=== PATIENT | male | born 1935 | race Caucasian/White ===

== ENCOUNTER 2018-03-29 03:06 | Inpatient (IN) ==
[2018-03-29] MEDS ORDERED: ALBUTEROL/IPRATROPIUM 3 ML NEB RESP TX STA (03:48)
[2018-03-29 04:24] LABS: Basophils % 0.1 % (0.0-0.8); Eosinophils % 0.1 % (0.00-10.9); Hematocrit 32.1 VOL% (42.0-52.0); Hemoglobin 10.6 GM/DL (14.0-18.0); Immature Granulocytes % 0.5 %; Immature Granulocytes Absolute 0.07 #; Lymphocytes % 6.6 % (21.2-54.2); Mean Corpuscular Hemoglobin 32 PG (27-34); Mean Corpuscular Volume 95.5 FL (87-102); Monocytes # 2.3 10*3/uL (0.11-0.8); Monocytes % 16.1 % (1.7-12.7); Neutrophils # 11.1 10*3/uL (1.4-7.4); Neutrophils % 76.6 % (38.7-73.9); Platelet Count 205 T/CUMM (130-400); Red Blood Count 3.36 MC/CUMM (3.8-5.5); Red Cell Distribution Width 12.3 % (9.3-17.3); White Blood Count 14.5 T/CUMM (4-12)
[2018-03-29 04:48] LABS: Alanine Aminotransferase 77 U/L (16-61); Albumin 2.8 G/DL (3.4-5.0); Alkaline Phosphatase 167 U/L (45-117); Aspartate Amino Transferase 88 U/L (0-37); Blood Urea Nitrogen 17 MG/DL (7-18); Calcium 8.2 MG/DL (8.5-10.1); Glucose 130 MG/DL (74-106); Osmolality,Calculated 276.8 MOS/KG (273-304); Potassium 4.1 MMOL/L (3.5-5.1); Sodium 137 MMOL/L (136-145); Total Protein 6.2 G/DL (6.4-8.3)
[2018-03-29 04:50] LABS: Band Neutrophils 7 % (0-10); Lymphocytes 7 % (20-55); Segmented Neutrophils 77 % (50-85); Total Cells Counted 100
[2018-03-29 09:22] LABS: Apearance,Urine Slightly Hazy (Clear); Bacteria,Urine Occasional /HPF (Few); Bilirubin,Urine Negative (Negative); Blood, Urine Small mg/dL (Negative); Glucose,Urine (UA) Negative (Negative); Ketones,Urine Negative (Negative); Mucus,Urine Occasional /LPF (Occasional); Nitrite,Urine Negative (Negative); Protein,Urine 30 MG/DL; RBC,Urine 6 /HPF (0-4); Squamous Epithelial Cell,Urine Occasional /HPF (0-10); Urine Color Amber (Yellow); Urine Specific Gravity 1.057 (1.001-1.035); WBC,Urine 97 /HPF (0-6)
[2018-03-29] MEDS: MEROPENEM 1,000 MG in SYRINGE 1 EACH IV SCH ×2 (14:26→21:45)
[2018-03-29] MEDS: PIPERACILLIN/TAZOBACTAM 3,375 MG in SODIUM CHLORIDE 0.9% 100 ML IV SCH (17:18)
[2018-03-29] MEDS: PANTOPRAZOLE 40 MG TABLET PO SCH (21:45)
[2018-03-29] MEDS: ESCITALOPRAM 10 MG TABLET PO SCH (21:45)
[2018-03-30] MEDS: ACETAMINOPHEN 325 MG TABLET PO PRN (00:54)
[2018-03-30] MEDS: PIPERACILLIN/TAZOBACTAM 3,375 MG in SODIUM CHLORIDE 0.9% 100 ML IV SCH ×2 (00:54→13:26)
[2018-03-30] MEDS: MEROPENEM 1,000 MG in SYRINGE 1 EACH IV SCH ×3 (06:19→21:46)
[2018-03-30 07:03] LABS: Basophils % 0.2 % (0.0-0.8); Eosinophils # 0.2 10*3/uL (0.0-0.87); Eosinophils % 2.1 % (0.00-10.9); Hematocrit 28.2 VOL% (42.0-52.0); Hemoglobin 9.4 GM/DL (14.0-18.0); Immature Granulocytes % 0.4 %; Immature Granulocytes Absolute 0.04 #; Lymphocytes % 9.7 % (21.2-54.2); Mean Corpuscular HGB Conc 33.3 GM/DL (32-36); Mean Corpuscular Hemoglobin 31 PG (27-34); Mean Corpuscular Volume 94.3 FL (87-102); Mean Platelet Volume 10.7 FL (9.6-12.0); Monocytes # 1.5 10*3/uL (0.11-0.8); Monocytes % 14.6 % (1.7-12.7); Neutrophils # 7.5 10*3/uL (1.4-7.4); Platelet Count 220 T/CUMM (130-400); Red Blood Count 2.99 MC/CUMM (3.8-5.5); Red Cell Distribution Width 12.3 % (9.3-17.3); White Blood Count 10.2 T/CUMM (4-12)
[2018-03-30 07:27] LABS: Albumin 2.3 G/DL (3.4-5.0); Bilirubin,Total 1.3 MG/DL (0.2-1.0); Calcium 8.1 MG/DL (8.5-10.1); Osmolality,Calculated 282.3 MOS/KG (273-304); Total Protein 5.4 G/DL (6.4-8.3)
[2018-03-30] MEDS: PANTOPRAZOLE 40 MG TABLET PO SCH ×2 (09:17→21:48)
[2018-03-30] MEDS: MONTELUKAST 10 MG TABLET PO SCH (09:17)
[2018-03-30] MEDS: FLUTICASONE 50 MCG NASAL SPRAY 16 GM BOTTLE BOTH NARES SCH (09:17)
[2018-03-30] MEDS: ALBUTEROL 0.63 MG/3 ML NEB RESP TX SCH ×3 (10:20→19:15)
[2018-03-30 11:14] LABS: Hepatitis A Ab IgM Result Negative (Negative); Hepatitis B Core IgM Quant 0.18 Index; Hepatitis B Core IgM Result Negative (Negative); Hepatitis B Surface Ag Quant < 0.10 Index; Hepatitis B Surface Ag Result Negative (Negative); Hepatitis C Virus Ab Quant 0.17 Index; Hepatitis C Virus Ab Result Negative (Negative)
[2018-03-30] MEDS ORDERED: MAGNESIUM CITRATE 300 ML BOTTLE PO ONE (14:45)
[2018-03-30] MEDS: ESCITALOPRAM 10 MG TABLET PO SCH (20:16)
[2018-03-31] MEDS: ALBUTEROL 0.63 MG/3 ML NEB RESP TX SCH ×4 (00:18→19:33)
[2018-03-31 04:59] LABS: Basophils % 0.2 % (0.0-0.8); Eosinophils # 0.2 10*3/uL (0.0-0.87); Eosinophils % 1.9 % (0.00-10.9); Hemoglobin 9.4 GM/DL (14.0-18.0); Immature Granulocytes % 0.4 %; Immature Granulocytes Absolute 0.04 #; Lymphocytes # 0.9 10*3/uL (1.4-4.0); Lymphocytes % 9.7 % (21.2-54.2); Mean Corpuscular HGB Conc 33.6 GM/DL (32-36); Mean Corpuscular Hemoglobin 31 PG (27-34); Mean Corpuscular Volume 93.6 FL (87-102); Mean Platelet Volume 10.5 FL (9.6-12.0); Monocytes # 1.2 10*3/uL (0.11-0.8); Monocytes % 12.8 % (1.7-12.7); Neutrophils # 7.2 10*3/uL (1.4-7.4); Platelet Count 242 T/CUMM (130-400); Red Blood Count 2.99 MC/CUMM (3.8-5.5); Red Cell Distribution Width 12.2 % (9.3-17.3); White Blood Count 9.6 T/CUMM (4-12)
[2018-03-31 05:29] LABS: Calcium 7.8 MG/DL (8.5-10.1); Osmolality,Calculated 278.4 MOS/KG (273-304); Potassium 4.3 MMOL/L (3.5-5.1)
[2018-03-31] MEDS: MEROPENEM 1,000 MG in SYRINGE 1 EACH IV SCH ×2 (06:17→14:45)
[2018-03-31] MEDS: FLUTICASONE 50 MCG NASAL SPRAY 16 GM BOTTLE BOTH NARES SCH (09:39)
[2018-03-31] MEDS: PANTOPRAZOLE 40 MG TABLET PO SCH ×2 (09:40→21:08)
[2018-03-31] MEDS: MONTELUKAST 10 MG TABLET PO SCH (09:40)
[2018-03-31] MEDS: POLYETHYLENE GLYCOL POWDER 17 GM PACK PO SCH (11:08)
[2018-03-31] MEDS: ESCITALOPRAM 10 MG TABLET PO SCH (21:08)
[2018-04-01] MEDS: ALBUTEROL 0.63 MG/3 ML NEB RESP TX SCH ×4 (00:31→20:27)
[2018-04-01] MEDS: FLUTICASONE 50 MCG NASAL SPRAY 16 GM BOTTLE BOTH NARES SCH (09:39)
[2018-04-01] MEDS: PANTOPRAZOLE 40 MG TABLET PO SCH ×2 (09:39→20:26)
[2018-04-01] MEDS: POLYETHYLENE GLYCOL POWDER 17 GM PACK PO SCH (09:39)
[2018-04-01] MEDS: MONTELUKAST 10 MG TABLET PO SCH (09:39)
[2018-04-01] MEDS: ESCITALOPRAM 10 MG TABLET PO SCH (20:26)
[2018-04-01] MEDS: IBUPROFEN 600 MG TABLET PO PRN (20:28)
[2018-04-02] MEDS: ALBUTEROL 0.63 MG/3 ML NEB RESP TX SCH ×4 (00:18→19:00)
[2018-04-02 05:43] LABS: Basophils % 0.4 % (0.0-0.8); Eosinophils # 0.3 10*3/uL (0.0-0.87); Eosinophils % 4.6 % (0.00-10.9); Hematocrit 32.6 VOL% (42.0-52.0); Hemoglobin 10.5 GM/DL (14.0-18.0); Immature Granulocytes % 0.6 %; Immature Granulocytes Absolute 0.04 #; Lymphocytes # 1.1 10*3/uL (1.4-4.0); Mean Corpuscular HGB Conc 32.2 GM/DL (32-36); Mean Corpuscular Hemoglobin 31 PG (27-34); Mean Corpuscular Volume 96.2 FL (87-102); Monocytes # 1.2 10*3/uL (0.11-0.8); Neutrophils # 4.6 10*3/uL (1.4-7.4); Neutrophils % 63.4 % (38.7-73.9); Platelet Count 275 T/CUMM (130-400); Red Blood Count 3.39 MC/CUMM (3.8-5.5); Red Cell Distribution Width 11.9 % (9.3-17.3); White Blood Count 7.2 T/CUMM (4-12)
[2018-04-02 06:26] LABS: Calcium 8.2 MG/DL (8.5-10.1); Osmolality,Calculated 280.3 MOS/KG (273-304); Potassium 4.5 MMOL/L (3.5-5.1)
[2018-04-02 06:27] LABS: Band Neutrophils 4 % (0-10); Eosinophils 5 % (0-10); Lymphocytes 9 % (20-55); Segmented Neutrophils 69 % (50-85); Total Cells Counted 100
[2018-04-02 06:28] LABS: Hypochromasia 1+; Platelet Estimate Normal
[2018-04-02] MEDS: FLUTICASONE 50 MCG NASAL SPRAY 16 GM BOTTLE BOTH NARES SCH (08:59)
[2018-04-02] MEDS: PANTOPRAZOLE 40 MG TABLET PO SCH ×2 (08:59→20:54)
[2018-04-02] MEDS: MONTELUKAST 10 MG TABLET PO SCH (08:59)
[2018-04-02] MEDS: POLYETHYLENE GLYCOL POWDER 17 GM PACK PO SCH (09:00)
[2018-04-02] MEDS: ACETAMINOPHEN 325 MG TABLET PO PRN (16:17)
[2018-04-02] MEDS: ESCITALOPRAM 10 MG TABLET PO SCH (20:54)
[2018-04-03] MEDS: ALBUTEROL 0.63 MG/3 ML NEB RESP TX SCH ×4 (00:37→19:39)
[2018-04-03] MEDS: FLUTICASONE 50 MCG NASAL SPRAY 16 GM BOTTLE BOTH NARES SCH ×2 (09:45→15:08)
[2018-04-03] MEDS ORDERED: DIAZEPAM 5 MG TABLET PO ONE (10:16)
[2018-04-03] MEDS: SODIUM CHLORIDE 0.45% 1,000 ML IV SCH (13:18)
[2018-04-03] MEDS ORDERED: HEPARIN 1,000 UNIT/1 ML VIAL ONE (14:27)
[2018-04-03] MEDS: APIXABAN 2.5 MG TABLET PO SCH ×2 (15:08→20:21)
[2018-04-03] MEDS: MONTELUKAST 10 MG TABLET PO SCH (15:08)
[2018-04-03] MEDS: POLYETHYLENE GLYCOL POWDER 17 GM PACK PO SCH (15:08)
[2018-04-03] MEDS: PANTOPRAZOLE 40 MG TABLET PO SCH ×2 (15:09→20:21)
[2018-04-03] MEDS: ACETAMINOPHEN 325 MG TABLET PO PRN (20:21)
[2018-04-03] MEDS: ESCITALOPRAM 10 MG TABLET PO SCH (20:21)
[2018-04-03] MEDS: IBUPROFEN 600 MG TABLET PO PRN (23:05)
[2018-04-04] MEDS: ALBUTEROL 0.63 MG/3 ML NEB RESP TX SCH ×4 (02:44→19:45)
[2018-04-04 03:59] LABS: Basophils # 0.1 10*3/uL (0.0-0.2); Basophils % 0.4 % (0.0-0.8); Eosinophils # 0.5 10*3/uL (0.0-0.87); Eosinophils % 4.1 % (0.00-10.9); Hematocrit 32.5 VOL% (42.0-52.0); Hemoglobin 10.5 GM/DL (14.0-18.0); Immature Granulocytes % 0.5 %; Immature Granulocytes Absolute 0.06 #; Lymphocytes # 1.4 10*3/uL (1.4-4.0); Lymphocytes % 11.5 % (21.2-54.2); Mean Corpuscular HGB Conc 32.3 GM/DL (32-36); Mean Corpuscular Hemoglobin 31 PG (27-34); Mean Platelet Volume 10.1 FL (9.6-12.0); Monocytes # 1.7 10*3/uL (0.11-0.8); Neutrophils # 8.2 10*3/uL (1.4-7.4); Neutrophils % 69.5 % (38.7-73.9); Platelet Count 339 T/CUMM (130-400); Red Blood Count 3.42 MC/CUMM (3.8-5.5); Red Cell Distribution Width 11.9 % (9.3-17.3); White Blood Count 11.8 T/CUMM (4-12)
[2018-04-04 04:19] LABS: Calcium 8.4 MG/DL (8.5-10.1); Osmolality,Calculated 279.5 MOS/KG (273-304); Potassium 4.2 MMOL/L (3.5-5.1)
[2018-04-04] MEDS: PANTOPRAZOLE 40 MG TABLET PO SCH ×2 (09:43→20:46)
[2018-04-04] MEDS: POLYETHYLENE GLYCOL POWDER 17 GM PACK PO SCH (09:43)
[2018-04-04] MEDS: MONTELUKAST 10 MG TABLET PO SCH (09:43)
[2018-04-04] MEDS: APIXABAN 2.5 MG TABLET PO SCH ×2 (09:43→20:46)
[2018-04-04] MEDS: ACETAMINOPHEN 325 MG TABLET PO PRN (13:46)
[2018-04-04] MEDS: ESCITALOPRAM 10 MG TABLET PO SCH (20:46)
[2018-04-04] MEDS: IBUPROFEN 600 MG TABLET PO PRN (20:46)
[2018-04-04] MEDS: SODIUM CHLORIDE 0.45% 1,000 ML IV SCH (22:46)
[2018-04-05] MEDS: ALBUTEROL 0.63 MG/3 ML NEB RESP TX SCH ×4 (01:12→20:32)
[2018-04-05] MEDS: APIXABAN 2.5 MG TABLET PO SCH ×2 (09:11→21:15)
[2018-04-05] MEDS: PANTOPRAZOLE 40 MG TABLET PO SCH ×2 (09:11→21:15)
[2018-04-05] MEDS: FLUTICASONE 50 MCG NASAL SPRAY 16 GM BOTTLE BOTH NARES SCH (09:11)
[2018-04-05] MEDS: MONTELUKAST 10 MG TABLET PO SCH (09:11)
[2018-04-05] MEDS: POLYETHYLENE GLYCOL POWDER 17 GM PACK PO SCH (09:12)
[2018-04-05] MEDS: AMIODARONE 200 MG TABLET PO SCH ×2 (10:52→21:15)
[2018-04-05] MEDS: ACETAMINOPHEN 325 MG TABLET PO PRN ×2 (10:55→21:15)
[2018-04-05 12:15] LABS: Apearance,Urine Slightly Hazy (Clear); Bilirubin,Urine Negative (Negative); Blood, Urine Moderate mg/dL (Negative); Glucose,Urine (UA) Negative (Negative); Ketones,Urine Negative (Negative); Mucus,Urine Occasional /LPF (Occasional); Nitrite,Urine Negative (Negative); Protein,Urine Negative; RBC,Urine 29 /HPF (0-4); Squamous Epithelial Cell,Urine Occasional /HPF (0-10); Urine Color Yellow (Yellow); Urine Specific Gravity 1.017 (1.001-1.035); Urine Urobilinogen < 2.0 EU/DL (0.2-1.0); WBC,Urine 39 /HPF (0-6)
[2018-04-05] MEDS: ESCITALOPRAM 10 MG TABLET PO SCH (21:15)
[2018-04-06] MEDS: ALBUTEROL 0.63 MG/3 ML NEB RESP TX SCH ×4 (01:01→19:37)
[2018-04-06 06:33] LABS: Basophils % 0.2 % (0.0-0.8); Eosinophils # 0.3 10*3/uL (0.0-0.87); Eosinophils % 2.1 % (0.00-10.9); Hematocrit 29.5 VOL% (42.0-52.0); Hemoglobin 9.4 GM/DL (14.0-18.0); Immature Granulocytes % 0.5 %; Immature Granulocytes Absolute 0.06 #; Mean Corpuscular HGB Conc 31.9 GM/DL (32-36); Mean Corpuscular Hemoglobin 30 PG (27-34); Mean Corpuscular Volume 94.2 FL (87-102); Mean Platelet Volume 9.9 FL (9.6-12.0); Monocytes # 1.6 10*3/uL (0.11-0.8); Monocytes % 12.8 % (1.7-12.7); Neutrophils # 9.7 10*3/uL (1.4-7.4); Neutrophils % 76.4 % (38.7-73.9); Platelet Count 382 T/CUMM (130-400); Red Blood Count 3.13 MC/CUMM (3.8-5.5); Red Cell Distribution Width 12.1 % (9.3-17.3); White Blood Count 12.7 T/CUMM (4-12)
[2018-04-06 06:58] LABS: Calcium 7.7 MG/DL (8.5-10.1); Osmolality,Calculated 273.8 MOS/KG (273-304); Potassium 4.1 MMOL/L (3.5-5.1)
[2018-04-06] MEDS: POLYETHYLENE GLYCOL POWDER 17 GM PACK PO SCH (08:11)
[2018-04-06] MEDS: PANTOPRAZOLE 40 MG TABLET PO SCH ×2 (08:59→20:53)
[2018-04-06] MEDS: AMIODARONE 200 MG TABLET PO SCH ×2 (08:59→20:52)
[2018-04-06] MEDS: FLUTICASONE 50 MCG NASAL SPRAY 16 GM BOTTLE BOTH NARES SCH (09:00)
[2018-04-06] MEDS ORDERED: LEVOFLOXACIN INJ 750 MG in PREMIX 1 EACH IV SCH (09:00)
[2018-04-06] MEDS: MONTELUKAST 10 MG TABLET PO SCH (09:00)
[2018-04-06] MEDS: APIXABAN 2.5 MG TABLET PO SCH ×2 (09:00→20:53)
[2018-04-06] MEDS: ESCITALOPRAM 10 MG TABLET PO SCH (20:53)
[2018-04-07] MEDS: ALBUTEROL 0.63 MG/3 ML NEB RESP TX SCH ×2 (00:29→06:53)
[2018-04-07 06:40] LABS: Basophils % 0.2 % (0.0-0.8); Eosinophils # 0.2 10*3/uL (0.0-0.87); Eosinophils % 1.2 % (0.00-10.9); Hematocrit 30.3 VOL% (42.0-52.0); Hemoglobin 10.2 GM/DL (14.0-18.0); Immature Granulocytes % 0.6 %; Immature Granulocytes Absolute 0.08 #; Lymphocytes # 1.3 10*3/uL (1.4-4.0); Lymphocytes % 10.1 % (21.2-54.2); Mean Corpuscular HGB Conc 33.7 GM/DL (32-36); Mean Corpuscular Hemoglobin 31 PG (27-34); Mean Corpuscular Volume 91.8 FL (87-102); Mean Platelet Volume 10.1 FL (9.6-12.0); Monocytes # 1.7 10*3/uL (0.11-0.8); Monocytes % 12.9 % (1.7-12.7); Neutrophils # 9.6 10*3/uL (1.4-7.4); Platelet Count 416 T/CUMM (130-400); Red Cell Distribution Width 12.1 % (9.3-17.3); White Blood Count 12.8 T/CUMM (4-12)
[2018-04-07 07:08] LABS: Calcium 8.2 MG/DL (8.5-10.1); Osmolality,Calculated 271.8 MOS/KG (273-304); Potassium 4.4 MMOL/L (3.5-5.1)
[2018-04-07] MEDS ORDERED: DOCUSATE SODIUM 100 MG CAPSULE PO PRN (09:00)
[2018-04-07] MEDS: APIXABAN 2.5 MG TABLET PO SCH (09:40)
[2018-04-07] MEDS: MONTELUKAST 10 MG TABLET PO SCH (09:40)
[2018-04-07] MEDS: AMIODARONE 200 MG TABLET PO SCH (09:42)
[2018-04-07] MEDS: PANTOPRAZOLE 40 MG TABLET PO SCH (09:42)
[2018-04-07] MEDS: FLUTICASONE 50 MCG NASAL SPRAY 16 GM BOTTLE BOTH NARES SCH (09:45)
[2018-04-07 11:28] VITALS: BP 120/63
== END 2018-04-07 12:47 | disposition home or self-care (01) | DRG 194 ==
LOC: N.ED 03:06 → N.EDINP 06:40 → N.2E 10:01